=== PATIENT | male | born 1995 | race African-American/Black ===

== ENCOUNTER 2016-12-06 22:04 | Emergency (ER) | payer MEDICAID ==
[~2016-12-06] VITALS: Ht 190.5 cm; Wt 117.9 kg
[~2016-12-06 22:04] MED LIST: ATARAX25 MG ORAL; IBUPROFEN600 MG ORAL; KEFLEX500 MG ORAL; LEVAQUIN500 MG ORAL; MOTRIN800 MG PO; NKM; PEPCID40 MG PO; REGLAN5 MG ORAL; VIBRAMYCIN100 MG ORAL; ZOFRAN ODT4 MG ORAL; ZOFRAN4 MG ORAL
[2016-12-06 22:24] VITALS: BP 133/80
--- NOTE | 2016-12-06 22:26 | Emergency Room Report ---
History of Present Illness General Chief Complaint: General Complaint Source: Patient, Medical Record Present Illness HPI Is a 21-year-old male with no significant past medical history. Does have a history of anxiety and heavy marijuana use. He said his been smoking marijuana all day today. He presents with chief complaint of dizziness and lightheadedness. He also complaining of numbness to his hands and fingers. Complaining of abdominal pain with vomiting. No diarrhea. Onset about an hour ago. Allergies: Coded Allergies: No Known Allergies (Unverified , 08/02/12) Patient History Past Medical History: see triage record, old chart reviewed, psych hx Past Surgical History: none Pertinent Family History: none Social History: Reports: drug use - Marijuana Immunizations: other Reviewed Nursing Documentation: PMH: Agreed, PSxH: Agreed Review of Systems Eye: Denies: blurred vision, eye pain ENT: Denies: ear pain, nose congestion, throat swelling Respiratory: Denies: cough, shortness of breath Cardiovascular: Denies: chest pain, palpitations Gastrointestinal: Reports: abdominal pain, nausea, vomiting, Denies: diarrhea Musculoskeletal: Denies: back pain, joint pain Skin: Denies: rash Neurological: Reports: dizziness, numbness, paresthesia, Denies: headache Endocrine: Denies: increased thirst, increased urine Hematologic/Lymphatic: Denies: easy bruising All Other Systems: negative except mentioned in HPI Physical Exam Vital Signs Date Time Temp Pulse Resp B/P Pulse Ox O2 Delivery O2 Flow Rate FiO2 12/06/16 22:15 98.1 75 16 135/80 99 Room Air vitals normal Sp02 EP Interpretation: reviewed, normal General Appearance: well appearing, no apparent distress, alert, obese Head: normocephalic, atraumatic Eyes: bilateral eye EOMI, bilateral eye PERRL ENT: hearing grossly normal, normal pharynx Neck: full range of motion, supple, no meningismus Respiratory: chest non-tender, lungs clear, normal breath sounds Cardiovascular #1: regular rate, rhythm, no murmur Gastrointestinal: normal bowel sounds, non tender, no mass, no organomegaly, no bruit, non-distended Musculoskeletal: back normal, gait/station normal, normal range of motion Neurologic: alert, oriented x3 Psychiatric: anxious Skin: warm/dry Medical Decision Making Diagnostic Impression: Primary Impression: Anxiety Additional Impressions: Abdominal pain Qualified Codes: R10.84 - Generalized abdominal pain Marijuana abuse, continuous ER Course Patient presents with anxiety attack secondary to heavy marijuana use and possible cyclic vomiting syndrome. He is better now. No evidence of ACS, PE, acute abdomen or obstruction. We'll discharge home with reassurance. Last Vital Signs Date Time Temp Pulse Resp B/P Pulse Ox O2 Delivery O2 Flow Rate FiO2 12/06/16 22:15 98.1 75 16 135/80 99 Room Air Status: improved Disposition: HOME, SELF-CARE Condition: Stable Additional Instructions: Abstain or cut down your marijuana use. Followup with your Dr. in 2 to 3 days. Return if symptom worsen. SHELBI SIDDIQUI M.D. Dec 06, 2016 22:26
[2016-12-06] MEDS ORDERED: LORazepam Inj 2mg/ml 1ml IM ONE (22:30)
[2016-12-06 22:58] VITALS: BP 133/80
== END 2016-12-06 22:58 | disposition home or self-care (01) ==
LOC: EMR 22:38
DX: F41.9 Anxiety disorder, unspecified (principal); R10.9 Unspecified abdominal pain; F12.10 Cannabis abuse, uncomplicated
CPT/HCPCS: 96372; 99283

== ENCOUNTER 2017-01-14 08:18 | Emergency (ER) | payer MEDICAID ==
[~2017-01-14] VITALS: Ht 188 cm; Wt 131.5 kg
[2017-01-14] MEDS ORDERED: Mylanta II UD 30ml ORAL ONE (09:00)
[2017-01-14] MEDS ORDERED: Famotidine 20 MG/ 2ML VIAL IVP ONE (09:00)
[2017-01-14] MEDS ORDERED: Lidocaine 2% Visc 15ml soln ORAL ONE (09:00)
[2017-01-14] MEDS ORDERED: Dicyclomine HCl 10mg/5ml oral soln ORAL ONE (09:00)
--- NOTE | 2017-01-14 09:03 | Emergency Room Report ---
History of Present Illness General Chief Complaint: Abdominal Pain Source: Patient Present Illness HPI 21-year-old male presents ED complaining of abdominal pain with vomiting and diarrhea. Symptoms started 2 days ago. Pain as cramping, epigastric, nonradiating. 06/20. No other aggravating or leading factors. Notes multiple episodes of vomiting and diarrhea. Denies chest pain or shortness of breath. Denies fevers or chills. Denies sick contacts or recent travel. Denies recent antibiotic use. Denies any other associated symptoms Allergies: Coded Allergies: No Known Allergies (Unverified , 08/02/12) Patient History Past Medical History: none Past Surgical History: none Pertinent Family History: none Social History: Denies: alcohol use, drug use, smoking Immunizations: UTD Reviewed Nursing Documentation: PMH: Agreed, PSxH: Agreed Nursing Documentation-PMH Past Medical History: No Stated History Review of Systems All Other Systems: negative except mentioned in HPI Physical Exam Vital Signs Date Time Temp Pulse Resp B/P Pulse Ox O2 Delivery O2 Flow Rate FiO2 01/14/17 08:29 97.3 50 24 151/86 100 Room Air Sp02 EP Interpretation: reviewed, normal General Appearance: no apparent distress, alert, GCS 15, non-toxic Head: normocephalic Eyes: bilateral eye PERRL, bilateral eye normal inspection ENT: normal ENT inspection Neck: normal inspection Respiratory: normal inspection Cardiovascular #1: normal inspection Gastrointestinal: normal bowel sounds, soft, non-distended, no guarding, no rebound, tenderness - epigastric Rectal: deferred Genitourinary: no CVA tenderness Musculoskeletal: normal inspection Neurologic: alert, oriented x3, responsive, motor strength/tone normal, sensory intact, speech normal Psychiatric: normal inspection Skin: normal inspection Lymphatic: normal inspection Medical Decision Making Diagnostic Impression: Primary Impression: Gastroenteritis ER Course Hospital Course 21-year-old M presents to ED with cramping abdominal pain with vomiting, diarrhea differential diagnosis: gastritis, SBO, cholecystits, gastroenteritis Clinical course Patient placed on stretcher. On youth nutritional monitor. After initial history and physical I ordered labs, IV fluids, Zofran and pepcid Labs - no leukocytosis, electrolytes, LFTs normal, UA unremarkable Upon reassessment, patient states pain has improved. findings consistent with gastroenteritis I feel this is a highly complex case requiring extensive working including EKG/ Rhythm strip, Xray/CT/US, Blood/urine lab work, repeat exams while in ED, and administration of strong opiates/narcotics for pain control, admission to hospital or close patient follow up. Diagnosis - gastroenteritis Stable and discharged to home with prescriptions for Zantac, zofran, bentyl. Followup with PMD. Return to ED if symptoms recur or worsen Labs Test 01/14/17 08:50 White Blood Count 10.1 K/UL (4.8-10.8) Red Blood Count 5.73 M/UL (4.70-6.10) Hemoglobin 16.1 G/DL (14.2-18.0) Hematocrit 49.9 % (42.0-52.0) Mean Corpuscular Volume 87 FL (80-99) Mean Corpuscular Hemoglobin 28.1 PG (27.0-31.0) Mean Corpuscular Hemoglobin Concent 32.2 G/DL (32.0-36.0) Red Cell Distribution Width 12.7 % (11.6-14.8) Platelet Count 250 K/UL (150-450) Mean Platelet Volume 7.6 FL (6.5-10.1) Neutrophils (%) (Auto) 72.0 % (45.0-75.0) Lymphocytes (%) (Auto) 15.5 % (20.0-45.0) Monocytes (%) (Auto) 10.2 % (1.0-10.0) Eosinophils (%) (Auto) 1.2 % (0.0-3.0) Basophils (%) (Auto) 1.0 % (0.0-2.0) Urine Color Yellow Urine Appearance Slightly cloudy Urine pH 6 (4.5-8.0) Urine Specific [place] 1.020 (1.005-1.035) Urine Protein 2+ (NEGATIVE) Urine Glucose (UA) Negative (NEGATIVE) Urine Ketones 3+ (NEGATIVE) Urine Occult Blood 1+ (NEGATIVE) Urine Nitrite Negative (NEGATIVE) Urine Bilirubin 1+ (NEGATIVE) Urine Ictotest Negative Urine Urobilinogen 1 MG/DL (0.0-1.0) Urine Leukocyte Esterase 1+ (NEGATIVE) Urine RBC 2-4 /HPF (0 - 0) Urine WBC 2-4 /HPF (0 - 0) Urine Squamous Epithelial Cells Occasional /LPF Urine Calcium Oxalate Crystals Few /LPF (NONE) Urine Amorphous Sediment Few /LPF (NONE) Urine Bacteria Few /HPF (NONE) Urine Mucus Few /LPF (NONE/OCC) Sodium Level 139 mEQ/L (135-145) Potassium Level 3.7 mEQ/L (3.4-4.9) Chloride Level 97 mEQ/L (98-107) Carbon Dioxide Level 21 mEQ/L (20-30) Anion Gap 21 (5-15) Blood Urea Nitrogen 8 mg/dL (7-23) Creatinine 1.0 mg/dL (0.7-1.2) Estimat Glomerular Filtration Rate > 60 mL/min (>60) Glucose Level 148 mg/dL (74-106) Calcium Level 9.6 mg/dL (8.6-10.2) Total Bilirubin 0.8 mg/dL (0.0-1.2) Aspartate Amino Transf (AST/SGOT) 13 U/L (5-40) Alanine Aminotransferase (ALT/SGPT) 11 U/L (3-41) Alkaline Phosphatase 83 U/L (40-129) Total Protein 7.7 g/dL (6.6-8.7) Albumin 4.1 g/dL (3.5-5.2) Globulin 3.6 g/dL Albumin/Globulin Ratio 1.1 (1.0-2.7) Lipase 20 U/L (< 60) Last Vital Signs Date Time Temp Pulse Resp B/P Pulse Ox O2 Delivery O2 Flow Rate FiO2 01/14/17 08:29 97.3 50 24 151/86 100 Room Air Status: improved Disposition: HOME, SELF-CARE Condition: Stable Scripts Ranitidine Hcl* (ZANTAC*) 150 Mg Tablet 150 MG ORAL TWICE A DAY, #30 TAB Prov: VIELKA BRAR M.D. 01/14/17 Ondansetron Odt* (ZOFRAN ODT*) 4 Mg Tab.rapdis 4 MG ORAL Q6H Y for Nausea & Vomiting, #30 TAB 0 Refills Prov: VIELKA BRAR M.D. 01/14/17 Dicyclomine Hcl* (BENTYL*) 10 Mg Capsule 10 MG ORAL FOUR TIMES A DAY, #20 CAP Prov: VIELKA BRAR M.D. 01/14/17 Referrals: [facility],REFERRING (PCP) VIELKA BRAR M.D. Jan 14, 2017 09:03
[2017-01-14 09:12] LABS: APPEARANCE,URINE SLIGHTLY CLOUDY; KETONES,URINE 3+ (NEGATIVE); LEUKOCYTE ESTERASE ,URINE 1+ (NEGATIVE); NITRITE,URINE NEGATIVE (NEGATIVE); PH,URINE 6 (4.5-8.0); PROTEIN,URINE 2+ (NEGATIVE); UROBILINOGEN,URINE 1 MG/DL (0.0-1.0)
[2017-01-14 09:14] LABS: EOSINOPHILS % (AUTO) 1.2 % (0.0-3.0); LYMPHOCYTES % (AUTO) 15.5 % (20.0-45.0); MEAN CORPUSCULAR HEMOGLOBIN 28.1 PG (27.0-31.0); MEAN CORPUSCULAR HGB CONC 32.2 G/DL (32.0-36.0); MEAN CORPUSCULAR VOLUME 87 FL (80-99); MEAN PLATELET VOLUME 7.6 FL (6.5-10.1); MONOCYTES % (AUTO) 10.2 % (1.0-10.0); PLATELET COUNT 250 K/UL (150-450); RED BLOOD COUNT 5.73 M/UL (4.70-6.10); RED CELL DISTRIBUTION WIDTH 12.7 % (11.6-14.8); WHITE BLOOD COUNT 10.1 K/UL (4.8-10.8)
[2017-01-14 09:15] LABS: ALANINE AMINOTRANSFERASE 11 U/L (3-41); ALBUMIN/GLOBULIN RATIO 1.1 (1.0-2.7); ANION GAP 21 (5-15); ASPARTATE AMINO TRANSFERASE 13 U/L (5-40); CALCIUM 9.6 mg/dL (8.6-10.2); CARBON DIOXIDE 21 mEQ/L (20-30); CHLORIDE 97 mEQ/L (98-107); GLOMERULAR FILTRATION RATE > 60 mL/min (>60); HEMOLYSIS 18; LIPASE 20 U/L (< 60); POTASSIUM 3.7 mEQ/L (3.4-4.9); SODIUM 139 mEQ/L (135-145); TOTAL PROTEIN 7.7 g/dL (6.6-8.7)
[2017-01-14 09:24] LABS: AMORPHOUS SEDIMENT,UR FEW /LPF; BACTERIA,URINE FEW /HPF; CALCIUM OXALATE CRYSTALS,UR FEW /LPF; ICTOTEST NEGATIVE; MUCUS,URINE FEW /LPF (NONE/OCC); SQUAMOUS EPITHELIAL CELL,UR OCCASIONAL /LPF (NONE/OCC)
[2017-01-14] MEDS ORDERED: RANITIDINE HCL150 MG ORAL (10:08)
[2017-01-14] MEDS ORDERED: BENTYL10 MG ORAL (10:08)
[2017-01-14] MEDS ORDERED: ZOFRAN ODT4 MG ORAL (10:08)
[2017-01-14] MEDS ORDERED: Morphine Sulfate 4mg/ml Inj IVP ONE (10:15)
[2017-01-14 10:22] VITALS: BP 110/58
[2017-01-14 10:38] VITALS: BP 112/72
== END 2017-01-14 10:40 | disposition home or self-care (01) ==
LOC: EMR 08:50
DX: K52.9 Noninfective gastroenteritis and colitis, unspecified (principal)
CPT/HCPCS: 36415; 80053; 81003; 83690; 85025; 96374; 96375; 99284; J2270; J2405; S0028

== ENCOUNTER 2017-02-23 08:52 | Emergency (ER) | payer MEDICAID ==
[~2017-02-23] VITALS: Ht 185.4 cm; Wt 127.0 kg
[~2017-02-23 08:52] MED LIST changes: +BENTYL10 MG ORAL; +RANITIDINE HCL150 MG ORAL
[2017-02-23] MEDS ORDERED: Metoclopramide 10mg/2ml Inj IVP ONE (09:30)
[2017-02-23] MEDS ORDERED: Famotidine 20 MG/ 2ML VIAL IVP ONE (09:30)
--- NOTE | 2017-02-23 09:32 | Emergency Room Report ---
History of Present Illness General Chief Complaint: Abdominal Pain Source: Patient, Family Member, Medical Record Present Illness HPI 21YOM walk-in patient with abd pain, nausea/vomiting since this morning. Denies fever/chills, diarrhea. States pain is epigastric. Not sure what he ate last night. No sick contacts. No previous abd/pelvic surgeries or sgnificant medical problems. Recent visit last month for similar. Smokes marijuana. Denies ETOH, other drugs. Allergies: Coded Allergies: No Known Allergies (Unverified , 08/02/12) Patient History Past Medical History: none Past Surgical History: none Pertinent Family History: none Social History: Reports: drug use, smoking Nursing Documentation-[facility] Past Medical History: No History, Except For Hx Gastrointestinal Problems: Yes - Intractable vomiting Review of Systems All Other Systems: negative except mentioned in HPI Physical Exam Vital Signs Date Time Temp Pulse Resp B/P Pulse Ox O2 Delivery O2 Flow Rate FiO2 02/23/17 08:58 42 18 122/77 97 Room Air Sp02 EP Interpretation: reviewed, abnormal, other - Patient with known bradycardia on review of EMR General Appearance: normal inspection, well appearing, alert, GCS 15, non-toxic , mild distress, obese, other - writhing on stretcher, dry heaving Head: normocephalic, atraumatic Eyes: bilateral eye EOMI, bilateral eye PERRL ENT: normal ENT inspection Neck: normal inspection, full range of motion, supple, no bony tend Respiratory: normal inspection, lungs clear, normal breath sounds, no respiratory distress, no retraction, no wheezing Cardiovascular #1: regular rate, rhythm, no edema Gastrointestinal: normal inspection, normal bowel sounds, soft, no guarding, no hernia, other - mild epigastric ttp Genitourinary: no CVA tenderness Musculoskeletal: normal inspection, back normal, normal range of motion, Marc' s Sign negative Neurologic: normal inspection, alert, oriented x3, responsive, metal sprayer production III-XII nml as tested, motor strength/tone normal, speech normal Psychiatric: normal inspection, judgement/insight normal, mood/affect normal Skin: normal inspection, normal color, no rash Lymphatic: normal inspection Medical Decision Making Diagnostic Impression: Primary Impression: Abdominal pain Qualified Codes: R10.13 - Epigastric pain ER Course 21YO M with mild epigastric ttp. VSS. Afebrile. Epigastric focal ttp Labs: No leuks. H&H stable. No metabolic abnormality. Elevated glucose. UTox positive for MJ. UA possible UTI Feels better after anti-emetic, analgesia Tolerating PO Abd pain, n/v - Multifactorial - related to repeated marijuana abuse, possible UTI Rx Keflex Rx Pepcid, zofran PMD followup Last Vital Signs Date Time Temp Pulse Resp B/P Pulse Ox O2 Delivery O2 Flow Rate FiO2 02/23/17 08:58 42 18 122/77 97 Room Air Status: improved Disposition: HOME, SELF-CARE Scripts Ondansetron Odt* (ZOFRAN ODT*) 4 Mg Tab.rapdis 4 MG ORAL BID Y for Nausea & Vomiting for 7 Days, #14 TAB 0 Refills Prov: EDD IRIZARRY M.D. 02/23/17 Famotidine (PEPCID) 20 Mg Tablet 20 MG ORAL BID for 7 Days, #14 TAB 0 Refills Prov: EDD IRIZARRY M.D. 02/23/17 Cephalexin* (KEFLEX*) 500 Mg Capsule 500 MG ORAL BID for 7 Days, #14 CAP 0 Refills Prov: EDD IRIZARRY M.D. 02/23/17 EDD IRIZARRY M.D. Feb 23, 2017 09:32
[2017-02-23 09:50] LABS: APPEARANCE,URINE SLIGHTLY CLOUDY; KETONES,URINE 3+ (NEGATIVE); LEUKOCYTE ESTERASE ,URINE 1+ (NEGATIVE); NITRITE,URINE NEGATIVE (NEGATIVE); PH,URINE 9 (4.5-8.0); PROTEIN,URINE 1+ (NEGATIVE); UROBILINOGEN,URINE NORMAL MG/DL (0.0-1.0)
[2017-02-23 09:50] LABS: BASOPHILS % (AUTO) 0.9 % (0.0-2.0); LYMPHOCYTES % (AUTO) 19.3 % (20.0-45.0); MEAN CORPUSCULAR HEMOGLOBIN 28.1 PG (27.0-31.0); MEAN CORPUSCULAR HGB CONC 32.1 G/DL (32.0-36.0); MEAN CORPUSCULAR VOLUME 88 FL (80-99); MEAN PLATELET VOLUME 7.7 FL (6.5-10.1); MONOCYTES % (AUTO) 3.8 % (1.0-10.0); NEUTROPHILS % (AUTO) 75.1 % (45.0-75.0); PLATELET COUNT 279 K/UL (150-450); RED BLOOD COUNT 5.88 M/UL (4.70-6.10); RED CELL DISTRIBUTION WIDTH 12.1 % (11.6-14.8); WHITE BLOOD COUNT 10.8 K/UL (4.8-10.8)
[2017-02-23 09:59] LABS: AMORPHOUS SEDIMENT,UR MODERATE /LPF; BACTERIA,URINE FEW /HPF; RBC,URINE 0-2 /HPF (0 - 0); SQUAMOUS EPITHELIAL CELL,UR OCCASIONAL /LPF (NONE/OCC)
[2017-02-23 10:08] LABS: ALANINE AMINOTRANSFERASE 11 U/L (3-41); ALBUMIN/GLOBULIN RATIO 1.4 (1.0-2.7); ANION GAP 23 (5-15); ASPARTATE AMINO TRANSFERASE 15 U/L (5-40); CALCIUM 9.9 mg/dL (8.6-10.2); CARBON DIOXIDE 21 mEQ/L (20-30); CHLORIDE 96 mEQ/L (98-107); GLOMERULAR FILTRATION RATE > 60 mL/min (>60); HEMOLYSIS 13; LIPASE 21 U/L (< 60); POTASSIUM 3.8 mEQ/L (3.4-4.9); SODIUM 140 mEQ/L (135-145); TOTAL PROTEIN 7.8 g/dL (6.6-8.7)
[2017-02-23] MEDS ORDERED: Morphine Sulfate 4mg/ml Inj IVP ONE (10:15)
[2017-02-23] MEDS ORDERED: ZOFRAN ODT4 MG ORAL (10:26)
[2017-02-23] MEDS ORDERED: PEPCID20 MG ORAL (10:26)
[2017-02-23] MEDS ORDERED: KEFLEX500 MG ORAL (10:26)
[2017-02-23 10:33] VITALS: BP 122/77
[2017-02-23 11:21] VITALS: BP 122/77
== END 2017-02-23 11:21 | disposition home or self-care (01) ==
LOC: EMR 10:09
DX: R10.13 Epigastric pain (principal); F17.210 Nicotine dependence, cigarettes, uncomplicated; F19.10 Other psychoactive substance abuse, uncomplicated; R11.2 Nausea with vomiting, unspecified
CPT/HCPCS: 36415; 80053; 80300; 81003; 83690; 85025; 96374; 96375; 99284; J2270; J2405; J2765; S0028